=== PATIENT | male | born 1990 | race Caucasian/White ===

== ENCOUNTER 2016-08-20 15:24 | Emergency (ER) | payer SELFPAY ==
[~2016-08-20] VITALS: Ht 175.3 cm; Wt 60.0 kg
[~2016-08-20 15:24] MED LIST: CLIN1CAP6 PO; OXYC5 PO
[2016-08-20 15:26] VITALS: BP 143/89; PULSE 94; RESP 15; TEMP 98; O2SAT 99
[2016-08-20] MEDS ORDERED: PERI0.126 SWISH-SPIT (18:13)
[2016-08-20] MEDS ORDERED: AMOX500T PO (18:13)
[2016-08-20] MEDS ORDERED: IBUP800T23 PO (18:13)
[2016-08-20] MEDS ORDERED: MAGICADU2 SWISH-SPIT (18:13)
[2016-08-20] MEDS ORDERED: KETOROLAC TROMETHAMINE 60 MG/2 ML (IM) VIAL IM ONE (18:15)
[2016-08-20] MEDS ORDERED: ONDANSETRON ODT 4 MG TAB PO/SL ONE (18:15)
[2016-08-20] MEDS ORDERED: diphenhydrAMINE HCL 50 MG/ML VIAL IM ONE (18:15)
--- NOTE | 2016-08-20 18:15 | PD ---
HPI Chief Complaint: Headache Time Seen by Provider: 18:03 Travel History International Travel<30 days: No Contact w/Intl Traveler<30days: No Traveled to known affect area: No History of Present Illness HPI 26-year-old male presents to the emergency department with 2 different complaint. His first complaint is right lower tooth pain 2 days. His second complaint is a migraine headache for the past month or longer that has been hard to control and has been on and off. Has history of migraine headaches. Took a Percocet last night for both pains with no relief of symptoms. Reports photophobia. Feels nauseated without vomiting. Headache is right-sided. Throbbing in sensation. Tooth pain radiates to the right ear. Denies fever, chills. No known relieving factors. Denies allergies. Denies other significant past medical history. No other modifying factors or associated signs and symptoms. PFSH Past Medical History Hx Anticoagulant Therapy: No Arthritis: No Asthma: No Heart Rhythm Problems: No Cancer: No Cardiovascular Problems: No High Cholesterol: No Chemotherapy: No Chest Pain: No Congestive Heart Failure: No COPD: No Cerebrovascular Accident: No Diabetes: No Endocrine: No GERD: No Genitourinary: No Hiatal Hernia: No Immune Disorder: No Musculoskeletal: No Neurologic: No Psychiatric: No Reproductive: No Respiratory: No Migraines: No Seizures: No Sickle Cell Disease: No Sleep Apnea: No Thyroid Disease: No Ulcer: No Past Surgical History Hysterectomy: No Social History Alcohol Use: Yes Tobacco Use: Yes Substance Use: Yes (A couple of years ago - percocet ) Allergies-Medications (Allergen,Severity, Reaction): Coded Allergies: *MDRO Multi-Drug Resistant Organism (Verified Adverse Reaction, Unknown, ) 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 Reported Meds & Prescriptions Reported Meds & Active Scripts Active Magic Mouthwash Adult Liq (Multi-Ingredient Mouthwash/Gargle) 120 Ml Susp 5 Ml SWISH-SPIT Q3HR PRN Each 5 mL contains: Nystatin 200,000 units, Diphenhydramine 4.25 mg, Viscous Lidocaine 10 mg, Horvath syrup 0.8 mL Peridex Liq (Chlorhexidine Gluconate (Mouth) Liq) 0.12% Soln 15 Ml SWISH-SPIT BID 10 Days Amoxicillin 500 Mg Tab 500 Mg PO BID 10 Days Ibuprofen 800 Mg Tab 800 Mg PO Q6HR PRN Review of Systems Except as stated in HPI: all other systems reviewed are Neg Physical Exam Narrative GENERAL: Well-nourished, well-developed male patient, in no acute distress; afebrile, nontoxic-appearing SKIN: Warm and dry. HEAD: Atraumatic. Normocephalic. No facial edema, erythema, tenderness to palpation. EYES: Pupils equal and round at 3 mm with brisk reaction. No scleral icterus. No injection or drainage. PERRLA. EOMI. ENT: Mucosa pink and moist. Airway patent. MOUTH: Mucous membranes moist, no lesions, tongue and gums appear normal. Poor dentition throughout. Right lower dentition is absent wary patient is complaining about the pain I do not see any obvious abscess, erythema, drainage , edema of the gums. The gums are with tenderness on palpation. Patient has multiple dental cavities and decay of all current teeth. NECK: Trachea midline. No lymphadenopathy. CARDIOVASCULAR: Regular rate and rhythm. No murmur appreciated. RESPIRATORY: No accessory muscle use. Clear to auscultation. Breath sounds equal bilaterally. GASTROINTESTINAL: Abdomen soft, non-tender, nondistended. Hepatic and splenic margins not palpable. Bowel sounds are active 4 quadrants. MUSCULOSKELETAL: No obvious deformities. No clubbing. No cyanosis. No edema. NEUROLOGICAL: Awake and alert. Oriented 3. No obvious cranial nerve deficits. Motor grossly within normal limits. Normal speech. No ataxia. Moves all extremities. 5/5 strength to all extremities. PSYCHIATRIC: Appropriate mood and affect; insight and judgment normal. Data Data Last Documented VS Vital Signs Date Time Temp Pulse Resp B/P Pulse Ox O2 Delivery O2 Flow Rate FiO2 08/20/16 15:26 98.0 94 15 143/89 99 Orders Ketorolac Inj (Toradol Inj) (08/20/16 18:15) Ondansetron Odt (Zofran Odt) (08/20/16 18:15) Diphenhydramine Inj (Benadryl Inj) (08/20/16 18:15) MDM Medical Decision Making Medical Screen Exam Complete: Yes Emergency Medical Condition: Yes Medical Record Reviewed: Yes Differential Diagnosis Migraine headache, dentalgia, dental abscess, gingivitis, dental caries Narrative Course 26-year-old male presents with 2 different complaints. His first is right lower dental pain and his second is migraine headache that he has been experiencing for the last month or more. He has history of headaches. Patient is afebrile. No obvious neuro deficits. Toradol, Benadryl, Zofran administered in the ER. Emergency information dental sheet provided. Amoxicillin, Peridex mouth rinse, Magic mouthwash, ibuprofen prescribed for home. Instructed patient to follow up with dentist. Patient is medically cleared and stable for discharge. Discussed reasons to return to the emergency department. Instructed patient to follow up with primary care provider. Patient agrees with treatment plan. The patients vital signs are stable and the patient is stable for outpatient follow-up and treatment. Patient discharged home, stable and in no acute distress. Diagnosis Primary Impression: Dentalgia Additional Impression: Headache Qualified Code: R51 - Intractable headache, unspecified chronicity pattern, unspecified headache type Referrals: Primary Care Physician Patient Instructions: Acute Headache (ED), Dental Abscess (ED), Dental Caries ( ED), General Instructions, Toothache (ED) Additional Instructions: HEADACHE: Ibuprofen or Tylenol as directed and as needed to reduce headache Get plenty of rest: do not over sleep rest and relax in a dark, quiet room as needed Place an ice pack on the back of her neck to reduce head pain as needed Keep a headache diary of what triggers her headaches and what treatment is most effective Avoid identifiable triggers Avoid smoking, alcohol and caffeine consumption Reduce stress Follow-up with primary care provider within 1-2 days Follow-up with neurology Return immediately to the emergency department with worsening symptoms, DENTAL: Complete full course of antibiotics Ibuprofen as directed and as needed to reduce pain and inflammation Use Magic mouthwash rinse as directed and as needed to decrease pain Use Peridex as directed for oral hygiene Warm/cold compresses to the affected area Follow-up with dentist Follow-up with primary care provider Return to emergency department immediately with worsening of symptoms Med/Other Pt SpecificInfo: Prescription(s) given Scripts Nqaffrav-Zyxrtctrbrswutu-Lbxpziqmf Liq (Magic Mouthwash Adult Liq)120 Ml Susp5 Ml SWISH-SPIT Q3HR PRN (PAIN SCALE 1 TO 10) #120 ML Ref 0 Each 5 mL contains: Nystatin 200,000 units, Diphenhydramine 4.25 mg, Viscous Lidocaine 10 mg, Horvath syrup 0.8 mL Prov:Rita Kumar 08/20/16 Chlorhexidine Gluconate (Mouth) Liq (Peridex Liq)0.12% Soln15 Ml SWISH-SPIT BID 10 Days Ref 0 Prov:Rita Kumar 08/20/16 Amoxicillin 500 Mg [id number] Mg PO BID 10 Days Ref 0 Prov:Rita Kumar 08/20/16 Ibuprofen 800 Mg [id number] Mg PO Q6HR PRN (PAIN) #30 TAB Ref 0 Prov:Rita Kumar 08/20/16 Disposition: 01 DISCHARGE HOME Condition: Stable Rita Kumar Aug 20, 2016 18:15 Rita Kumar Aug 20, 2016 18:15
== END 2016-08-20 19:11 | disposition home or self-care (01) ==
LOC: NEPB 15:24
DX: K08.89 Other specified disorders of teeth and supporting structures (principal); R51 Headache; Z86.69 Personal history of other diseases of the nervous system and sense organs; Z72.0 Tobacco use
CPT/HCPCS: 96372; 99283; J1200; J1885

== ENCOUNTER 2016-08-29 12:49 | Emergency (ER) | payer SELFPAY ==
[~2016-08-29] VITALS: Ht 175.3 cm; Wt 62.0 kg
[~2016-08-29 12:49] MED LIST changes: +AMOX500T PO; -CLIN1CAP6 PO; +IBUP800T23 PO; +MAGICADU2 SWISH-SPIT; -OXYC5 PO; +PERI0.126 SWISH-SPIT
[2016-08-29 12:53] VITALS: BP 152/81; PULSE 87; RESP 20; TEMP 98.4; O2SAT 96
--- NOTE | 2016-08-29 14:24 | PD ---
HPI Chief Complaint: Cold / Flu Symptoms Time Seen by Provider: 14:23 Travel History International Travel<30 days: No Contact w/Intl Traveler<30days: No Traveled to known affect area: No History of Present Illness HPI 26-year-old male presents to the emergency department for evaluation of chest pain for 2 days. Patient states that yesterday he began to have sharp pain in his chest as well as his left upper back and left shoulder. States that today the pain worsened and he has pain from his chest to his upper back and bilateral arms. States the pain is aggravated with inspiration. Denies any alleviating factors. He does state he has had a dry nonproductive cough for the past 2 weeks. Denies any fever, chills, nausea, vomiting, lightheadedness, dizziness, shortness of breath, abdominal pain. The patient admits to smoking cigarettes. He admits to taking Percocet yesterday. Denies any other drug use , denies IV drug use. Denies any history of heart disease. Denies any family history of heart disease or sudden cardiac . No other complaints. PFSH Past Medical History Medical History: Denies Significant Hx Hx Anticoagulant Therapy: No Arthritis: No Asthma: No Heart Rhythm Problems: No Cancer: No Cardiovascular Problems: No High Cholesterol: No Chemotherapy: No Chest Pain: No Congestive Heart Failure: No COPD: No Cerebrovascular Accident: No Diabetes: No Endocrine: No GERD: No Genitourinary: No Hiatal Hernia: No Immune Disorder: No Musculoskeletal: No Neurologic: No Psychiatric: No Reproductive: No Respiratory: No Migraines: No Seizures: No Sickle Cell Disease: No Sleep Apnea: No Thyroid Disease: No Ulcer: No Past Surgical History Hysterectomy: No Social History Alcohol Use: Yes Tobacco Use: Yes Substance Use: Yes (A couple of years ago - percocet ) Allergies-Medications (Allergen,Severity, Reaction): Coded Allergies: *MDRO Multi-Drug Resistant Organism (Verified Adverse Reaction, Unknown, ) 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 Reported Meds & Prescriptions Reported Meds & Active Scripts Active Naproxen 500 Mg Tab 500 Mg PO BID 7 Days Magic Mouthwash Adult Liq (Multi-Ingredient Mouthwash/Gargle) 120 Ml Susp 5 Ml SWISH-SPIT Q3HR PRN Each 5 mL contains: Nystatin 200,000 units, Diphenhydramine 4.25 mg, Viscous Lidocaine 10 mg, Horvath syrup 0.8 mL Peridex Liq (Chlorhexidine Gluconate (Mouth) Liq) 0.12% Soln 15 Ml SWISH-SPIT BID 10 Days Amoxicillin 500 Mg Tab 500 Mg PO BID 10 Days Ibuprofen 800 Mg Tab 800 Mg PO Q6HR PRN Review of Systems Except as stated in HPI: all other systems reviewed are Neg Physical Exam Narrative GENERAL: Well-nourished and well-developed male patient in no acute distress. SKIN: Warm and dry. HEAD: Normocephalic and atraumatic. EYES: No injection, drainage, or hyphema noted. PERRLA. EOMI. ENT: No nasal drainage noted. Oropharynx is clear and the TMs are normal with good landmarks. NECK: Supple and the trachea is midline. No lymphadenopathy is noted throughout the cervical chains. No meningeal signs. CARDIOVASCULAR: Regular rate and rhythm. RESPIRATORY: Breath sounds are equal bilaterally with no accessory muscle use, wheezing, rhonchi, or crackles. GASTROINTESTINAL: Abdomen is soft, non-tender, and nondistended. MUSCULOSKELETAL: No obvious deformities, swelling, cyanosis, or ecchymosis is present throughout the upper and lower extremities. Patient has full range of motion without any signs of neurovascular compromise. BACK: Mild tenderness to palpation of left upper trapezius muscles. No obvious deformities, bony point tenderness, or crepitus noted throughout the thoracic and lumbar vertebrae. NEUROLOGICAL: Awake, alert, and oriented. Normal speech and gait. Cranial nerves are grossly intact. Data Data Last Documented VS Vital Signs Date Time Temp Pulse Resp B/P Pulse Ox O2 Delivery O2 Flow Rate FiO2 08/29/16 15:19 99 08/29/16 12:53 98.4 87 20 152/81 Orders Electrocardiogram (08/29/16 14:22) Basic Metabolic Panel (Bmp) (08/29/16 14:22) Complete Blood Count With Diff (08/29/16 14:22) D-Dimer (08/29/16 14:22) Magnesium (Mg) (08/29/16 14:22) Prothrombin Time / Inr (Pt) (08/29/16 14:22) Act Partial Throm Time (Ptt) (08/29/16 14:22) Troponin I (08/29/16 14:22) Ecg Monitoring (08/29/16 14:22) Iv Access Insert/Monitor (08/29/16 14:22) Oximetry (08/29/16 14:22) Sodium Chloride 0.9% Flush (Ns Flush) (08/29/16 14:30) Chest, Pa & Lat (08/29/16 14:22) Ketorolac Inj (Toradol Inj) (08/29/16 14:30) Influenzae A/B Antigen (08/29/16 14:25) C-Reactive Protein (Crp) (08/29/16 16:01) Creatine Kinase (Cpk) (08/29/16 17:35) Sodium Chlor 0.9% 1000 Ml Inj (Ns 1000 M (08/29/16 17:47) Labs Laboratory Tests Test 08/29/16 14:30 White Blood Count 8.1 TH/MM3 Red Blood Count 5.16 MIL/MM3 Hemoglobin 15.2 GM/DL Hematocrit 44.3 % Mean Corpuscular Volume 85.9 FL Mean Corpuscular Hemoglobin 29.5 PG Mean Corpuscular Hemoglobin 34.4 % Concent Red Cell Distribution Width 13.2 % Platelet Count 246 TH/MM3 Mean Platelet Volume 7.6 FL Neutrophils (%) (Auto) 74.8 % Lymphocytes (%) (Auto) 15.1 % Monocytes (%) (Auto) 8.5 % Eosinophils (%) (Auto) 1.0 % Basophils (%) (Auto) 0.6 % Neutrophils # (Auto) 6.0 TH/MM3 Lymphocytes # (Auto) 1.2 TH/MM3 Monocytes # (Auto) 0.7 TH/MM3 Eosinophils # (Auto) 0.1 TH/MM3 Basophils # (Auto) 0.0 TH/MM3 CBC Comment DIFF FINAL Differential Comment Prothrombin Time 11.8 SEC Prothromb Time International 1.1 RATIO Ratio Activated Partial 32.0 SEC Thromboplast Time D-Dimer Quantitative (PE/DVT) 0.30 MG/L FEU Sodium Level 139 MEQ/L Potassium Level 3.5 MEQ/L Chloride Level 103 MEQ/L Carbon Dioxide Level 27.7 MEQ/L Anion Gap 8 MEQ/L Blood Urea Nitrogen 9 MG/DL Creatinine 1.01 MG/DL Estimat Glomerular Filtration 88 ML/MIN Rate Random Glucose 113 MG/DL Calcium Level 8.9 MG/DL Magnesium Level 2.1 MG/DL Total Creatine Kinase 36 U/L Troponin I LESS THAN 0.02 NG/ML C-Reactive Protein 1.40 MG/DL MDM Medical Decision Making Medical Screen Exam Complete: Yes Emergency Medical Condition: Yes Differential Diagnosis Pleurisy versus pneumonia versus bronchitis versus PE versus ACS versus other Narrative Course 26-year-old male presents to the emergency department for evaluation of chest pain, back pain and arm pain. Patient is afebrile, vital signs are stable. Physical examination really does have some trapezius muscle tenderness but otherwise is unremarkable. IV access is obtained, labs been drawn and sent. Chest x-ray has been ordered and is pending. Patient is given Toradol 30 mg IV. Chest x-ray is negative. CBC is unremarkable. EKG shows normal sinus rhythm with no acute ST elevations or depressions. Influenza swab is negative. BMP is unremarkable. Troponin is less then 0.02. CRP slightly elevated at 1.4. CPK is 36. D-dimer is negative. Patient has been given Toradol and fluids. He has had some improvement of symptoms. He remained stable and without complaint here in the ED. Discussed with the patient all lab results and imaging. Discussed with him that the etiology of his symptoms is unclear but he likely has a viral illness. Discussed supportive care and when to return to the emergency department. Advised follow-up with his PCP. I discussed the case with my attending physician Dr. Knight who is aware of the patients history, physical examination findings, and treatment plan. Diagnosis Primary Impression: Myalgia Referrals: Primary Care Physician Patient Instructions: General Instructions Additional Instructions: Drink plenty of fluids. Rest. Take medication as prescribed with food and a full glass of water. Follow-up with your Primary Care Physician. Return to the ED for any acute worsening of symptoms. Med/Other Pt SpecificInfo: Prescription(s) given Scripts Naproxen 500 Mg [id number] Mg PO BID 7 Days Ref 0 Prov:Nicole Knight MD 08/29/16 Disposition: 01 DISCHARGE HOME Condition: Stable Rita Wang Aug 29, 2016 14:23
[2016-08-29] MEDS ORDERED: KETOROLAC TROMETHAMINE 30 MG/ML (IVP) VIAL IV PUSH ONE (14:30)
[2016-08-29] MEDS ORDERED: SODIUM CHLORIDE 0.9% FLUSH 5 ML FLUSH IVF PRN (14:30)
[2016-08-29 15:04] LABS: BASOPHIL % 0.6 % (0.0-2.0); EOSINOPHIL # 0.1 TH/MM3 (0-0.4); HEMATOCRIT 44.3 % (39.0-51.0); HEMO FLAGS DIFF FINAL; LYMPH % 15.1 % (9.0-44.0); LYMPHOCYTE # 1.2 TH/MM3 (1.0-4.8); MEAN CELL VOLUME 85.9 FL (80.0-100.0); MEAN CORPUSCULAR HEMOGLOBIN 29.5 PG (27.0-34.0); MEAN CORPUSCULAR HGB CONC 34.4 % (32.0-36.0); MONO % 8.5 % (0.0-8.0); NEUT % 74.8 % (16.0-70.0); PLATELET COUNT 246 TH/MM3 (150-450); RED BLOOD COUNT 5.16 MIL/MM3 (4.50-5.90); RED CELL DISTRIBUTION WIDTH 13.2 % (11.6-17.2); WHITE BLOOD COUNT 8.1 TH/MM3 (4.0-11.0)
--- NOTE | 2016-08-29 15:09 | RADRPT ---
EXAM DATE/TIME: 08/29/2016 14:51 [facility] COMPARISON: No previous studies available for comparison. INDICATIONS : Patient complains of chest pain. MEDICAL HISTORY : None. SURGICAL HISTORY : None. ENCOUNTER: Initial ACUITY: 3 days PAIN SCORE: 9/10 LOCATION: chest FINDINGS: PA and lateral views of the chest demonstrate the lungs to be symmetrically aerated without evidence of mass, infiltrate or effusion. The cardiomediastinal contours are unremarkable. Osseous structure s are intact. CONCLUSION: No acute disease. Manolo Wall MD FACR on August 29, 2016 at 15:07 Board Certified Radiologist. This report was verified electronically.
[2016-08-29 15:19] VITALS: O2SAT 99
[2016-08-29 15:23] LABS: INTERNATIONAL NORMALIZED RATIO 1.1 RATIO; PROTHROMBIN TIME - PATIENT 11.8 SEC (9.8-11.6)
[2016-08-29 15:47] LABS: ANION GAP 8 MEQ/L (5-15); BICARBONATE 27.7 MEQ/L (21.0-32.0); BLOOD UREA NITROGEN 9 MG/DL (7-18); CHLORIDE 103 MEQ/L (98-107); GLOMERULAR FILTRATION RATE 88 ML/MIN (>89); MAGNESIUM 2.1 MG/DL (1.5-2.5); POTASSIUM 3.5 MEQ/L (3.5-5.1); SODIUM (NA) 139 MEQ/L (136-145)
[2016-08-29] MEDS ORDERED: SODIUM CHLOR 0.9% 1000 ML INJ 1,000 ML IV SCH (17:47)
[2016-08-29] MEDS ORDERED: NAPR500T PO (18:45)
--- NOTE | 2016-08-30 13:28 | EKG ---
Date Performed: 08/29/2016 Time Performed: 15:11:21 PTAGE: 26 years EKG: Sinus rhythm MODERATE INTRAVENTRICULAR CONDUCTION DELAY BORDERLINE ECG NO PREVIOUS TRACING DOCTOR: Ze Reagan Interpretating Date/Time 08/30/2016 13:27:33
== END 2016-08-29 18:57 | disposition home or self-care (01) ==
LOC: NEPB 12:49
DX: M79.1 Myalgia (principal); R05 Cough; F17.210 Nicotine dependence, cigarettes, uncomplicated
CPT/HCPCS: 71020; 80048; 82550; 83735; 84484; 85025; 85379; 85610; 85730; 86140; 87804; 93005; 96374; 99285; J1885; J7030

== ENCOUNTER 2017-03-26 16:00 | Observation (INO) | payer SELFPAY ==
[~2017-03-26 16:00] MED LIST changes: +NAPR500T PO
[2017-03-26 16:12] VITALS: BP 135/87; PULSE 113; RESP 16; O2SAT 93
[2017-03-26] MEDS ORDERED: SODIUM CHLORIDE 0.9% FLUSH 10 ML FLUSH IVF PRN (16:15)
[2017-03-26] MEDS ORDERED: SODIUM CHLOR 0.9% 1000 ML INJ 1,000 ML IV ONE (16:15)
--- NOTE | 2017-03-26 16:41 | RADRPT ---
EXAM DATE/TIME: 03/26/2017 16:21 [facility] COMPARISON: No previous studies available for comparison. INDICATIONS : Chest pain. Possible overdose. MEDICAL HISTORY : None. SURGICAL HISTORY : None. ENCOUNTER: Initial ACUITY: 1 day PAIN SCORE: 7/10 LOCATION: Bilateral chest FINDINGS: A single view of the chest demonstrates the lungs to be symmetrically aerated without evidence of mas s, infiltrate or effusion. The cardiomediastinal contours are unremarkable. Osseous structures are intact. CONCLUSION: No acute disease. Henry Lawson MD on March 26, 2017 at 16:39 Board Certified Radiologist. This report was verified electronically.
--- NOTE | 2017-03-26 16:50 | PD ---
HPI Chief Complaint: OD/ Ingestion Time Seen by Provider: 16:15 Travel History International Travel<30 days: No Contact w/Intl Traveler<30days: No Traveled to known affect area: No History of Present Illness HPI 26-year-old male presents to the ER brought in by EMS, had apparently taken heroine and was unresponsive, was given Narcan by EMS. His friends on scene had initiated CPR although EMS stated that he had bounding pulse when they got there. He is currently awake and oriented. He does not remember episode. Modifying Factors: None Associated Signs & Symptoms: Heroine overdose Risk Factors: None PFSH Past Medical History Hx Anticoagulant Therapy: No Arthritis: No Asthma: No Heart Rhythm Problems: No Cancer: No Cardiovascular Problems: No High Cholesterol: No Chemotherapy: No Chest Pain: No Congestive Heart Failure: No COPD: No Cerebrovascular Accident: No Diabetes: No Endocrine: No GERD: No Genitourinary: No Hiatal Hernia: No Immune Disorder: No Musculoskeletal: No Neurologic: No Psychiatric: No Reproductive: No Respiratory: No Migraines: No Seizures: No Sickle Cell Disease: No Sleep Apnea: No Thyroid Disease: No Ulcer: No Past Surgical History Surgical History: No Previous Surgery Hysterectomy: No Social History Alcohol Use: Yes Tobacco Use: Yes Substance Use: Yes (HEROIN) Allergies-Medications (Allergen,Severity, Reaction): Coded Allergies: *MDRO Multi-Drug Resistant Organism (Verified Adverse Reaction, Unknown, ) 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 Awake and oriented 3. SKIN: Focused skin assessment warm/dry. HEAD: Atraumatic. Normocephalic. EYES: Pupils small and equal and round. No scleral icterus. No injection or drainage. ENT: No nasal bleeding or discharge. Mucous membranes pink and moist. NECK: Trachea midline. No JVD. CARDIOVASCULAR: Regular rate and rhythm. No murmur appreciated. RESPIRATORY: No accessory muscle use. Clear to auscultation. Breath sounds equal bilaterally. GASTROINTESTINAL: Abdomen soft, non-tender, nondistended. Hepatic and splenic margins not palpable. MUSCULOSKELETAL: No obvious deformities. No clubbing. No cyanosis. No edema. NEUROLOGICAL: Awake and alert. No obvious cranial nerve deficits. Motor grossly within normal limits. Normal speech. PSYCHIATRIC: Appropriate mood and affect; insight and judgment normal. Data Data Last Documented VS Vital Signs Date Time Temp Pulse Resp B/P Pulse Ox O2 Delivery O2 Flow Rate FiO2 03/26/17 17:46 86 16 118/69 97 Room Air Orders Electrocardiogram (03/26/17 16:15) Complete Blood Count With Diff (03/26/17 16:15) Comprehensive Metabolic Panel (03/26/17 16:15) Chest, Single Ap (03/26/17 16:15) Iv Access Insert/Monitor (03/26/17 16:15) Ecg Monitoring (03/26/17 16:15) Oximetry (03/26/17 16:15) Sodium Chloride 0.9% Flush (Ns Flush) (03/26/17 16:15) Sodium Chlor 0.9% 1000 Ml Inj (Ns 1000 M (03/26/17 16:15) Drug Screen, Random Urine (03/26/17 16:15) Alcohol (Ethanol) (03/26/17 16:15) Labs Laboratory Tests Test 03/26/17 03/26/17 16:30 16:50 White Blood Count 8.4 TH/MM3 Red Blood Count 4.02 MIL/MM3 Hemoglobin 12.0 GM/DL Hematocrit 36.0 % Mean Corpuscular Volume 89.5 FL Mean Corpuscular Hemoglobin 29.9 PG Mean Corpuscular Hemoglobin 33.4 % Concent Red Cell Distribution Width 14.8 % Platelet Count 244 TH/MM3 Mean Platelet Volume 7.6 FL Neutrophils (%) (Auto) 79.2 % Lymphocytes (%) (Auto) 12.7 % Monocytes (%) (Auto) 4.0 % Eosinophils (%) (Auto) 3.4 % Basophils (%) (Auto) 0.7 % Neutrophils # (Auto) 6.7 TH/MM3 Lymphocytes # (Auto) 1.1 TH/MM3 Monocytes # (Auto) 0.3 TH/MM3 Eosinophils # (Auto) 0.3 TH/MM3 Basophils # (Auto) 0.1 TH/MM3 CBC Comment DIFF FINAL Differential Comment Sodium Level 138 MEQ/L Potassium Level 4.0 MEQ/L Chloride Level 107 MEQ/L Carbon Dioxide Level 25.9 MEQ/L Anion Gap 5 MEQ/L Blood Urea Nitrogen 14 MG/DL Creatinine 1.30 MG/DL Estimat Glomerular Filtration 66 ML/MIN Rate Random Glucose 301 MG/DL Calcium Level 7.9 MG/DL Total Bilirubin 0.2 MG/DL Aspartate Amino Transf 38 U/L (AST/SGOT) Alanine Aminotransferase 47 U/L (ALT/SGPT) Alkaline Phosphatase 78 U/L Total Protein 6.6 GM/DL Albumin 3.4 GM/DL Ethyl Alcohol Level LESS THAN 3 MG/DL Urine Opiates Screen POS Urine Barbiturates Screen NEG Urine Amphetamines Screen NEG Urine Benzodiazepines Screen NEG Urine Cocaine Screen POS Urine Cannabinoids Screen NEG MDM Medical Decision Making Medical Screen Exam Complete: Yes Emergency Medical Condition: Yes Medical Record Reviewed: Yes Interpretation(s) Laboratory Tests Test 03/26/17 03/26/17 16:30 16:50 Red Blood Count 4.02 MIL/MM3 (4.50-5.90) Hemoglobin 12.0 GM/DL (13.0-17.0) Hematocrit 36.0 % (39.0-51.0) Neutrophils (%) (Auto) 79.2 % (16.0-70.0) Estimat Glomerular Filtration 66 ML/MIN (>89) Rate Random Glucose 301 MG/DL (74-106) Calcium Level 7.9 MG/DL (8.5-10.1) Aspartate Amino Transf 38 U/L (15-37) (AST/SGOT) Urine Opiates Screen POS (NEG) Urine Cocaine Screen POS (NEG) Last 24 hours Impressions Chest X-Ray 03/26/17 1615 Signed Impressions: Service Date/Time: Sunday, March 26, 2017 16:21 - CONCLUSION: No acute disease. Henry Lawson MD Differential Diagnosis Rapid overdose versus coingestions versus metabolic issues Narrative Course Labs shows that he also took cocaine. At this point, vital signs are stable. My plan would be to admit the patient for further observation. Case is discussed with Dr. Castrejon for admission. Diagnosis Primary Impression: Opiate overdose Admitting Information Admitting Physician Requests: Admit Scripts No Active Prescriptions or Reported Meds Jono Rosas MD Mar 26, 2017 16:50
[2017-03-26 17:11] LABS: AUTOMATED NEUTROPHIL # 6.7 TH/MM3 (1.8-7.7); BASOPHIL # 0.1 TH/MM3 (0-0.2); BASOPHIL % 0.7 % (0.0-2.0); EOSINOPHIL # 0.3 TH/MM3 (0-0.4); EOSINOPHIL % 3.4 % (0.0-4.0); HEMO FLAGS DIFF FINAL; LYMPH % 12.7 % (9.0-44.0); LYMPHOCYTE # 1.1 TH/MM3 (1.0-4.8); MEAN CELL VOLUME 89.5 FL (80.0-100.0); MEAN CORPUSCULAR HEMOGLOBIN 29.9 PG (27.0-34.0); MEAN CORPUSCULAR HGB CONC 33.4 % (32.0-36.0); NEUT % 79.2 % (16.0-70.0); PLATELET COUNT 244 TH/MM3 (150-450); RED BLOOD COUNT 4.02 MIL/MM3 (4.50-5.90); RED CELL DISTRIBUTION WIDTH 14.8 % (11.6-17.2); WHITE BLOOD COUNT 8.4 TH/MM3 (4.0-11.0)
[2017-03-26 17:30] LABS: ANION GAP 5 MEQ/L (5-15); AST (GOT) 38 U/L (15-37); BICARBONATE 25.9 MEQ/L (21.0-32.0); BLOOD UREA NITROGEN 14 MG/DL (7-18); CHLORIDE 107 MEQ/L (98-107); GLOMERULAR FILTRATION RATE 66 ML/MIN (>89); SODIUM (NA) 138 MEQ/L (136-145)
[2017-03-26 17:33] LABS: ALKALINE PHOSPHATASE 78 U/L (45-117); ALT (GPT) 47 U/L (12-78); TOTAL BILIRUBIN ADULT 0.2 MG/DL (0.2-1.0)
[2017-03-26 17:36] LABS: ALCOHOL LESS THAN 3 MG/DL (0-5)
[2017-03-26 17:46] VITALS: BP 118/69; PULSE 86; RESP 16; O2SAT 97
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
[2017-03-26] MEDS ORDERED: traMADol HCL 50 MG TAB PO PRN (19:00)
[2017-03-26 19:17] VITALS: BP 112/63; PULSE 82; RESP 16; TEMP 98.3; O2SAT 98
[2017-03-26] MEDS: NEOMYCIN/POLYMYXIN/BACITRACIN OINT 15 GM TUBE TOPICAL SCH (20:01)
[2017-03-26] MEDS: SODIUM CHLOR 0.9% 1000 ML INJ 1,000 ML IV SCH (20:01)
[2017-03-26 20:55] VITALS: BP 117/66; PULSE 68; RESP 16; O2SAT 97
[2017-03-26 21:24] VITALS: BP 117/66
[2017-03-27 00:05] VITALS: BP 108/63; PULSE 75; RESP 18; TEMP 98.3; O2SAT 96
[2017-03-27 03:53] VITALS: BP 115/65; PULSE 65; RESP 18; TEMP 98.6; O2SAT 98
[2017-03-27] MEDS: SODIUM CHLOR 0.9% 1000 ML INJ 1,000 ML IV SCH (04:15)
[2017-03-27 08:05] VITALS: BP 101/59; PULSE 53; RESP 18; TEMP 98; O2SAT 96
--- NOTE | 2017-03-27 10:16 | HHI.PR ---
Subjective Remarks patient feels great- smiling and interactive complains of aches/pain po 100%, no nausea or vomiting Objective Vitals Vital Signs Date Time Temp Pulse Resp B/P Pulse Ox O2 Delivery O2 Flow Rate FiO2 03/27/17 08:05 98.0 53 18 101/59 96 03/27/17 03:53 98.6 65 18 115/65 98 03/27/17 00:05 98.3 75 18 108/63 96 03/26/17 21:24 68 16 117/66 97 03/26/17 20:55 68 16 117/66 97 Room Air 03/26/17 19:17 98.3 82 16 112/63 98 Room Air 03/26/17 17:46 86 16 118/69 97 Room Air 03/26/17 16:20 Room Air 03/26/17 16:12 113 16 135/87 93 Result Diagram: 03/26/17 1630 03/26/17 1630 Imaging Last Impressions Chest X-Ray 03/26/17 1615 Signed Impressions: Service Date/Time: Sunday, March 26, 2017 16:21 - CONCLUSION: No acute disease. Henry Lawson MD Objective Remarks awake and alert, NAD anicteric lungs clear regular rhythm abdomen soft, nontender extremities no edema low back area- no erythema, superficial abrasion, dry A/P Assessment and Plan 26-year-old male presenting with Cocaine use status post Narcan - MS - feels great - very motivated with lifestyle changes - CK normal. encourage po fluids -tolerating po well Substance abuse- relapse -OP rehab referral- CM to give infor- for substance abuse OP- [facility] OP Patient with good support system Tobacco abuse- counselled Hyperglycemia on random blood sugar I'm assuming patient probably did receive D50 .on the field -Cjheck FS now Skin abrasions- back -triple antibiotic to area bid Case management -OP referral to [facility] outpatient- d/w CM- to give info Rebekah Castrejon MD Mar 27, 2017 10:16
[2017-03-27] MEDS: NEOMYCIN/POLYMYXIN/BACITRACIN OINT 15 GM TUBE TOPICAL SCH (10:21)
[2017-03-27 12:00] VITALS: BP 93/57; PULSE 59; RESP 16; TEMP 98.3; O2SAT 95
--- NOTE | 2017-03-27 18:11 | EKG ---
Date Performed: 03/26/2017 Time Performed: 16:24:13 PTAGE: 26 years EKG: Sinus rhythm Compared to prior tracing no significant change BORDERLINE ECG PREVIOUS TRACING : 08/29/2016 15.11 DOCTOR: Ze Reagan Interpretating Date/Time 03/27/2017 18:11:32
== END 2017-03-27 14:45 | disposition home or self-care (01) ==
LOC: NEPC 16:00 → NEDA 18:08 → NEPFCDU 21:58
PROVIDERS: ADMIT Internal Medicine; ATTEND Internal Medicine
DX: F14.90 Cocaine use, unspecified, uncomplicated (principal); T40.601A Poisoning by unspecified narcotics, accidental (unintentional), initial encounter; R73.9 Hyperglycemia, unspecified; S30.810A Abrasion of lower back and pelvis, initial encounter; R07.9 Chest pain, unspecified; F17.200 Nicotine dependence, unspecified, uncomplicated; Z59.0 Homelessness; X58.XXXA Exposure to other specified factors, initial encounter
CPT/HCPCS: 71010; 80053; 80307; 82550; 82948; 85025; 93005; 96360; 96361; 99285; G0378; J7030

== ENCOUNTER 2017-04-07 17:34 | Observation (INO) | payer SELFPAY ==
[2017-04-07 17:46] VITALS: BP 123/65; PULSE 88; RESP 22; TEMP 98; O2SAT 95
[2017-04-07] MEDS ORDERED: SODIUM CHLOR 0.9% 1000 ML INJ 1,000 ML IV ONE (18:00)
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
[2017-04-07 18:13] VITALS: O2SAT 97
[2017-04-07 18:47] LABS: AUTOMATED NEUTROPHIL # 3.6 TH/MM3 (1.8-7.7); BASOPHIL # 0.1 TH/MM3 (0-0.2); BASOPHIL % 0.9 % (0.0-2.0); EOSINOPHIL # 0.2 TH/MM3 (0-0.4); EOSINOPHIL % 3.5 % (0.0-4.0); HEMATOCRIT 42.3 % (39.0-51.0); HEMO FLAGS DIFF FINAL; LYMPH % 29.4 % (9.0-44.0); LYMPHOCYTE # 1.8 TH/MM3 (1.0-4.8); MEAN CELL VOLUME 90.6 FL (80.0-100.0); MEAN CORPUSCULAR HEMOGLOBIN 30.7 PG (27.0-34.0); MEAN CORPUSCULAR HGB CONC 33.9 % (32.0-36.0); MONO % 6.5 % (0.0-8.0); NEUT % 59.7 % (16.0-70.0); PLATELET COUNT 323 TH/MM3 (150-450); RED BLOOD COUNT 4.67 MIL/MM3 (4.50-5.90); RED CELL DISTRIBUTION WIDTH 15.3 % (11.6-17.2); WHITE BLOOD COUNT 6.1 TH/MM3 (4.0-11.0)
--- NOTE | 2017-04-07 18:47 | RADRPT ---
EXAM DATE/TIME: 04/07/2017 18:37 [facility] COMPARISON: CHEST SINGLE AP, March 26, 2017, 16:21. INDICATIONS : Chest pain starting today MEDICAL HISTORY : None. SURGICAL HISTORY : None. ENCOUNTER: Initial ACUITY: 1 day PAIN SCORE: 10/10 LOCATION: Bilateral chest FINDINGS: A single view of the chest demonstrates the lungs to be symmetrically aerated without evidence of mas s, infiltrate or effusion. The cardiomediastinal contours are unremarkable. Osseous structures are intact. CONCLUSION: No acute disease. No significant change has occurred. Good Dobson MD on April 07, 2017 at 18:45 Board Certified Radiologist. This report was verified electronically.
[2017-04-07 18:54] LABS: ANION GAP 9 MEQ/L (5-15); BICARBONATE 25.3 MEQ/L (21.0-32.0); BLOOD UREA NITROGEN 15 MG/DL (7-18); CHLORIDE 105 MEQ/L (98-107); GLOMERULAR FILTRATION RATE 74 ML/MIN (>89); POTASSIUM 3.4 MEQ/L (3.5-5.1); SODIUM (NA) 139 MEQ/L (136-145)
[2017-04-07 18:57] LABS: ALCOHOL LESS THAN 3 MG/DL (0-5)
[2017-04-07 19:07] LABS: ACETAMINOPHEN LESS THAN 2.0 MCG/ML (10.0-30.0)
[2017-04-07 19:58] VITALS: BP 116/70; PULSE 60; RESP 15; O2SAT 100
[2017-04-07] MEDS ORDERED: SODIUM CHLORIDE 0.9% FLUSH 10 ML FLUSH IV FLUSH PRN (20:15)
[2017-04-07] MEDS ORDERED: NALOXONE HCL 0.4 MG/ML AMP IV PRN (20:15)
[2017-04-07] MEDS: SODIUM CHLORIDE 0.9% FLUSH 10 ML FLUSH IV FLUSH SCH (21:00)
[2017-04-07 21:56] VITALS: PULSE 86
[2017-04-08 00:28] VITALS: PULSE 63
[2017-04-08 00:36] VITALS: BP 113/57; PULSE 59; RESP 19; TEMP 97.7; O2SAT 98
[2017-04-08 04:10] VITALS: PULSE 55
[2017-04-08 04:20] VITALS: BP 106/58; PULSE 59; RESP 18; TEMP 97.6; O2SAT 99
[2017-04-08 07:28] VITALS: PULSE 57
--- NOTE | 2017-04-08 08:30 | EKG ---
Date Performed: 04/07/2017 Time Performed: 18:05:33 PTAGE: 26 years EKG: Sinus rhythm NORMAL ECG PREVIOUS TRACING : 03/26/2017 16.24 No significant change from previous tracing noted. DOCTOR: Tushar Lambert Interpretating Date/Time 04/08/2017 08:28:46
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
[2017-04-08] MEDS ORDERED: IBUP800T23 PO (08:45)
--- NOTE | 2017-04-08 08:46 | HHI.DCPOC ---
Discharge Care Plan Diagnosis: (1) Opiate overdose (2) Tobacco abuse (3) Chest wall contusion Goals to Promote Your Health * To prevent worsening of your condition and complications * To maintain your health at the optimal level Directions to Meet Your Goals Take your medications as prescribed Follow your dietary instruction Follow activity as directed Keep your appointments as scheduled Take your immunizations and boosters as scheduled If your symptoms worsen call your PCP, if no PCP go to Urgent Care Center or Emergency Room Smoking is Dangerous to Your Health. Avoid second hand smoke Call the 24-hour hour crisis hotline for domestic abuse at Bety Zhao MD Apr 08, 2017 08:46
[2017-04-08] MEDS: SODIUM CHLORIDE 0.9% FLUSH 10 ML FLUSH IV FLUSH SCH (09:00)
[2017-04-08 09:36] VITALS: BP 116/55; PULSE 64; RESP 20; TEMP 98; O2SAT 98
== END 2017-04-08 10:42 | disposition home or self-care (01) ==
LOC: NEPC 17:34 → NEDA 20:06 → NEPHCDU 21:11
PROVIDERS: ADMIT Family Medicine; ATTEND Family Medicine
DX: T40.601A Poisoning by unspecified narcotics, accidental (unintentional), initial encounter (principal); T40.1X1A Poisoning by heroin, accidental (unintentional), initial encounter; S20.219A Contusion of unspecified front wall of thorax, initial encounter; F11.90 Opioid use, unspecified, uncomplicated; F17.210 Nicotine dependence, cigarettes, uncomplicated
CPT/HCPCS: 71010; 80048; 80307; 85025; 93005; 99285; G0378; J7030